=== PATIENT | female | born 1990 | race African-American/Black ===

== ENCOUNTER 2019-05-10 21:16 | Emergency (ER) | payer OTHER ==
[2019-05-10] MEDS ORDERED: METOCLOPRAMIDE 10 MG/2 ML VIAL IVP STA (21:40)
[2019-05-10] MEDS ORDERED: SODIUM CHLORIDE 0.9% 1,000 ML IV ONE (21:41)
--- NOTE | 2019-05-10 21:44 | ED Physician Documentation ---
History of Present Illness - Stated complaint Stated Complaint: COUGHING/CHILLS/8WKS PREG - Chief complaint Chief Complaint: Heent - History obtained from History obtained from: Patient - History of Present Illness Timing: Today - Additonal information Additional information: 29 YEAR OLD FEMALE AT 8 GESTATIONAL WEEKS BASED ON LMP PRESENTS TO THE EMERGENCY DPERATMENT WITH 1 DAY OF COUGH, CONGESTION, FEVER, MYALGIA. PATIENT REPORTS OF UPPER ABDOMINAL PAIN WITH COUGHING. NO VAGINAL BLEEDING, PELVIC PAIN, DIARRHEA OR CONSTIPATION. PATIENT'S 3 CHILDREN HAVE A RUNNY NOSE RECENTLY. PATIENT DENIES OTHER SICK CONTACTS OR RECENT TRAVELS. PATIENT VOMITED ONCE WELL. Review of Systems Constitutional: reports: Fever, Chills Eyes: denies: Photophobia, Discharge Ears: denies: Ear pain, Drainage/discharge Nose: reports: Rhinorrhea / runny nose, Congestion Throat: reports: Sore throat. denies: Dental pain / toothache Respiratory: reports: Cough. denies: Dyspnea, Hemoptysis, Wheezing GI: reports: Nausea, Vomiting. 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 - Present Medications Home Medications: Ambulatory Orders Medication Instructions Recorded Confirmed Metoclopramide [Reglan] 10 mg PO Q6H PRN #20 tablet 05/10/19 Oseltamivir Phosphate [Tamiflu] 75 mg PO BID 5 Days #10 capsule 05/10/19 - Allergies Allergies/Adverse Reactions: Allergies Allergy/AdvReac Type Severity Reaction Status Date / Time No Known Drug Allergies Allergy Verified 05/10/19 21:39 - Social History Does the pt smoke?: No Smoking Status: Never smoker Does the pt drink ETOH?: No Does the pt have substance abuse?: No - Immunizations Immunizations are current?: No Results - Vitals Vitals: Oxygen O2 Source Room air - Labs Labs: Laboratory Tests 05/10/19 05/10/19 05/10/19 21:44 21:54 21:57 WBC 6.5 RBC 4.51 Hgb 12.5 Hct 38.4 MCV 85.1 MCH 27.7 MCHC 32.6 RDW 13.1 Plt Count 282 MPV 10.8 Neut # (Auto) 5.3 Lymph # (Auto) 0.5 L [place] # (Auto) 0.7 Eos # (Auto) 0.0 Baso # (Auto) 0.0 Absolute Nucleated RBC 0.00 Nucleated RBC % 0.0 Sodium 132 L Potassium 3.9 Chloride 100 L Carbon Dioxide 20 L Anion Gap 12.0 BUN 7 Creatinine 0.6 Estimated GFR (MDRD) 144 Glucose 100 Calcium 9.4 Total Bilirubin 0.5 AST 19 ALT 14 Alkaline Phosphatase 49 Total Protein 8.0 Albumin 4.1 Globulin 3.9 Albumin/Globulin Ratio 1.1 Lipase 33 Influenza A (Rapid) POSITIVE H Influenza B (Rapid) Negative PD MEDICAL DECISION MAKING - ED course Complexity details: re-evaluated patient, d/w patient, d/w family ED course: 29 YEAR OLD FEMALE PRESENTS TO THE EMERGENCY DEPARTMENT BECAUSE OF FEVER, SORE THROAT, MYALGIA AND A COUGH THAT STARTED TODAY. SHE WAS TESTED POSITIVE FOR INFLUENZA A. SHE WAS GIVEN IV FLUID. SHE HAD NO VOMITING HERE IN THE EMERGENCY DEPARTMENT. SHE WAS GIVEN TYLENOL FOR FEVER. ON RECHECK, SHE WAS FEELING MUCH BETTER. SHE REMAINED SLIGHTLY TACHYCARDIAC BUT STABLE. SHE AMBULATED TO THE ATHROOM WITHOUT FEELING DIZZY, SHORTNESS OF BREATH OR SYNCOPE OR NEAR SYNCOPE. I REOCMMENDED CLOSE OUTPATIENT FOLLOW UP. STRICT RETURN INSTRUCTIONS WERE GIVEN. PATIENT WAS DISCHARGED IN STABLE CONDITION. Departure - Departure Disposition: 01 Home, Self Care Clinical Impression: Influenza A, Vomiting Condition: Stable Instructions: ED Flu, ED Nausea Vomiting Follow-Up: [facility] [Provider Group] - Within 3 Days Prescriptions: Metoclopramide [Reglan] 10 mg PO Q6H PRN #20 tablet PRN Reason: Nausea / Vomiting Oseltamivir Phosphate [Tamiflu] 75 mg PO BID 5 Days #10 capsule Comments: PLEASE DRINK PLENTY OF FLUID. PLEASE USE TYLENOL NEEDED FOR FEVER CONTROL. PLEASE FOLLOW UP WITH YOUR DOCTOR IN 3-5 DAYS. RETURN TO THE EMERGENCY DEPARTMENT IF YOU DEVELOP ABDOMINAL PAIN, VAGINAL BLEEDING OR ANY NEW OR CONCERNING SYMPTOMS. Discharge Date/Time: 05/10/19 23:38
[2019-05-10] MEDS ORDERED: ACETAMINOPHEN 500 MG TABLET PO STA (21:57)
[2019-05-10] MEDS ORDERED: OSELTAMIVIR 75 MG CAPSULE PO STA (22:23)
[2019-05-10 22:30] LABS: ALBUMIN 4.1 g/dL (3.2-5.5); ALBUMIN/GLOBULIN RATIO 1.1 (1.0-2.2); BILIRUBIN,TOTAL 0.5 mg/dL (0.2-1.0); CALCIUM 9.4 mg/dL (8.5-10.3); CREATININE 0.6 mg/dL (0.4-1.0)
[2019-05-10 22:48] LABS: BASOPHILS % (AUTO) 0.2 %; EOSINOPHILS % (AUTO) 0.2 %; HGB - HEMOGLOBIN 12.5 g/dL (12.0-16.0); LYMPHOCYTES # (AUTO) 0.5 10^3/uL (1.5-3.5); LYMPHOCYTES % (AUTO) 7.6 %; MEAN CORPUSCULAR HEMOGLOBIN 27.7 pg (27.0-31.0); MEAN CORPUSCULAR HGB CONC 32.6 g/dL (32.0-36.0); MEAN CORPUSCULAR VOLUME 85.1 fL (81.0-99.0); MEAN PLATELET VOLUME 10.8 fL (7.9-10.8); MONOCYTES # (AUTO) 0.7 10^3/uL (0.0-1.0); MONOCYTES % (AUTO) 10.4 %; NEUTROPHILS # (AUTO) 5.3 10^3/uL (1.5-6.6); NEUTROPHILS % (AUTO) 81.1 %; PLT - PLATELET COUNT 282 10^3/uL (130-450); RED BLOOD COUNT 4.51 10^6/uL (4.20-5.40); RED CELL DISTRIBUTION WIDTH 13.1 % (12.0-15.0); WHITE BLOOD COUNT 6.5 x10^3/uL (4.8-10.8)
[2019-05-10] MEDS ORDERED: METOCLOPRAMIDE 10 MG TABLET PO PRN (22:59)
[2019-05-10 23:35] VITALS: BP 128/87
== END 2019-05-10 23:38 | disposition home or self-care (01) ==
LOC: ED 21:16
DX: J10.1 Influenza due to other identified influenza virus with other respiratory manifestations (principal)
CPT/HCPCS: 36415; 80053; 83690; 85025; 87275; 87276; 96361; 96374; 99283; 99284; A9270; J2765

== ENCOUNTER 2019-11-01 19:59 | Outpatient (CLI) | payer OTHER ==
--- NOTE | 2019-11-01 21:44 | Ultrasound Report ---
PROCEDURE: OB F/U or Repeat INDICATIONS: GEST DIABETES, IUGR, SUPERVISION HIGH RISK PREGNAN OUTSIDE/PRIOR DATING DATA: First dating scan (date and location): 10/24/2019. Estimated date of delivery (DAVID) from first dating scan: 12/15/2019. TECHNIQUE: Real-time scanning was performed of the fetus, with image documentation and biometric measurements. Endovaginal scanning: Not performed COMPARISON: None. FINDINGS: General: A single living intrauterine gestation is present. Presentation: Vertex Placenta: Placental position is anterior, without previa. Amniotic fluid index: 17.2 cm, 68% for gestational age. heart rate: 132 beats per minute. Maternal cervical canal: 4.2 cm long; normal length is 2.5 cm or more. biometrics: Biparietal diameter: 7.8 cm, 31 weeks, 2 days Head circumference: 29.8 cm, 32 weeks, 6 days Abdominal circumference: 29.4 cm, 33 weeks 3 days Femur length: 6.2 cm, 32 weeks, 2 days Estimated gestational age from initial scan: 33 weeks, 5 days Composite gestational age from present scan: 32 weeks, 3 days Estimated weight and percentile: 2059 g, 19.1 percentile Measurement variability in biometric dating: +/- 10 days from 12-20 weeks gestation, +/- 2 weeks from 20-30 weeks gestation, +/- 3 weeks at 30 weeks gestation or more. Other: Not applicable. IMPRESSION: 1. Single live uterine gestation with a gestational age of 33 weeks, 5 days which is concordant with dates by previous scan. 2. VIRGILIO within normal limits. 3. 19th percentile for overall growth. Reviewed by: Shena Reynoso MD on 11/01/2019 9:43 PM PDT Approved by: Shena Reynoso MD on 11/01/2019 9:43 PM PDT Station ID: [id number]
== END 2019-11-01 20:00 | disposition home or self-care (01) ==
LOC: DI 19:59
PROVIDERS: ATTEND Obstetrics & Gynecology
DX: O24.419 Gestational diabetes mellitus in pregnancy, unspecified control (principal); O36.5930 Maternal care for other known or suspected poor fetal growth, third trimester, not applicable or unspecified; O09.93 Supervision of high risk pregnancy, unspecified, third trimester; Z3A.33 33 weeks gestation of pregnancy
CPT/HCPCS: 76816

== ENCOUNTER 2019-11-02 16:18 | Outpatient (CLI) | payer OTHER ==
[2019-11-02 16:45] VITALS: BP 92/51
--- NOTE | 2019-11-07 13:56 | PROCEDURE REPORT ---
- HPI Diagnosis/Indication for NST: Gestational Diabetes Current EDU 12/15/19 Gestation 33 Weeks and 6 Days 4 Para 3 Vital Signs Temperature 36.7 C 11/02/19 16:35 Heart Rate 100 11/02/19 16:35 Respiratory Rate 16 11/02/19 16:35 Blood Pressure 79/59 L 11/02/19 16:35 O2 Saturation 100 11/02/19 16:35 Temperature 36.7 C 11/02/19 16:35 Heart Rate 100 11/02/19 16:35 Respiratory Rate 16 11/02/19 16:35 Blood Pressure 92/51 L 11/02/19 16:45 O2 Saturation 100 11/02/19 16:35 - NST Procedure NST Procedure Start Date 11/02/19 Start Time 16:26 Stop Time 17:00 Vibroacoustic Stimulation Used No Patient States Movement Yes - Results and Plan Findings/Impression: reactive NST Plan: continue Antinatal NST's
== END 2019-11-02 17:05 | disposition home or self-care (01) ==
LOC: WFO 16:18 → FBP 16:22 → WFO 17:05
PROVIDERS: ATTEND Obstetrics & Gynecology
DX: O24.419 Gestational diabetes mellitus in pregnancy, unspecified control (principal); Z3A.33 33 weeks gestation of pregnancy
CPT/HCPCS: 59025

== ENCOUNTER 2019-11-05 18:58 | Outpatient (CLI) | payer OTHER ==
[2019-11-05 19:22] VITALS: BP 95/54
--- NOTE | 2019-11-24 20:22 | PROCEDURE REPORT ---
- HPI Vital Signs Temperature 98.2 F 11/05/19 19:15 Heart Rate 96 11/05/19 19:15 Respiratory Rate 17 11/05/19 19:15 Blood Pressure 95/54 L 11/05/19 19:15 O2 Saturation 98 11/05/19 19:15 Temperature 98.2 F 11/05/19 19:15 Heart Rate 96 11/05/19 19:15 Respiratory Rate 17 11/05/19 19:15 Blood Pressure 95/54 L 11/05/19 19:15 O2 Saturation 98 11/05/19 19:15 - NST Procedure NST Procedure Start Date 11/05/19 Start Time 19:00 Stop Time 17:00 Vibroacoustic Stimulation Used No EFM 125 mod william 15x15 accels no decels TOCO: quiet - Results and Plan Findings/Impression: Cat I tracing Cont with twice weekly NST and weekly VIRGILIO
== END 2019-11-05 19:46 | disposition home or self-care (01) ==
LOC: WFO 18:58 → FBP 19:01 → WFO 19:46
PROVIDERS: ATTEND Obstetrics & Gynecology
DX: O24.419 Gestational diabetes mellitus in pregnancy, unspecified control (principal)
CPT/HCPCS: 59025

== ENCOUNTER 2019-11-07 16:06 | Outpatient (CLI) | payer OTHER ==
[2019-11-07 16:19] VITALS: BP 126/77
--- NOTE | 2019-11-16 11:50 | PROCEDURE REPORT ---
- HPI Diagnosis/Indication for NST: Gestational Diabetes Current EDU 12/15/19 Gestation 34 Weeks and 4 Days 4 Para 3 Vital Signs Temperature 37.1 C 11/07/19 16:19 Heart Rate 100 11/07/19 16:19 Respiratory Rate 18 11/07/19 16:19 Blood Pressure 126/77 11/07/19 16:19 O2 Saturation 100 11/07/19 16:19 Temperature 37.1 C 11/07/19 16:19 Heart Rate 100 11/07/19 16:19 Respiratory Rate 18 11/07/19 16:19 Blood Pressure 126/77 11/07/19 16:19 O2 Saturation 100 11/07/19 16:19 - NST Procedure NST Procedure Start Date 11/07/19 Start Time 16:15 Stop Time 16:35 Vibroacoustic Stimulation Used No Patient States Movement Yes - Results and Plan Findings/Impression: 34 WEEKS GDM REACTIVE NST Plan: CONTINUE ANTINATAL TESTING
--- NOTE | 2019-11-16 11:53 | PROCEDURE REPORT ---
- HPI Diagnosis/Indication for NST: Gestational Diabetes Current EDU 12/15/19 Gestation 34 Weeks and 4 Days 4 Para 3 Vital Signs Temperature 37.1 C 11/07/19 16:19 Heart Rate 100 11/07/19 16:19 Respiratory Rate 18 11/07/19 16:19 Blood Pressure 126/77 11/07/19 16:19 O2 Saturation 100 11/07/19 16:19 Temperature 37.1 C 11/07/19 16:19 Heart Rate 100 11/07/19 16:19 Respiratory Rate 18 11/07/19 16:19 Blood Pressure 126/77 11/07/19 16:19 O2 Saturation 100 11/07/19 16:19 - NST Procedure NST Procedure Start Date 11/07/19 Start Time 16:15 Stop Time 16:35 Vibroacoustic Stimulation Used No Patient States Movement Yes - Results and Plan Findings/Impression: REACTIVE NST Plan: CONTINUE ANTINATAL TESTING
== END 2019-11-07 16:39 | disposition home or self-care (01) ==
LOC: WFO 16:06 → FBP 16:08 → WFO 16:39
PROVIDERS: ATTEND Obstetrics & Gynecology
DX: O24.419 Gestational diabetes mellitus in pregnancy, unspecified control (principal); Z3A.34 34 weeks gestation of pregnancy
CPT/HCPCS: 59025

== ENCOUNTER 2019-11-10 15:38 | Outpatient (CLI) | payer OTHER ==
[2019-11-10 16:30] VITALS: BP 118/71
--- NOTE | 2019-11-10 23:13 | PROCEDURE REPORT ---
- HPI Diagnosis/Indication for NST: Gestational Diabetes Current EDU 12/15/19 Gestation 35 Weeks and 0 Days 4 Para 3 Vital Signs Temperature 99.0 F 11/10/19 16:00 Heart Rate 98 11/10/19 16:00 Respiratory Rate 16 11/10/19 16:00 Blood Pressure 118/71 11/10/19 16:00 O2 Saturation 100 11/10/19 16:00 Temperature 99.0 F 11/10/19 16:00 Heart Rate 98 11/10/19 16:00 Respiratory Rate 16 11/10/19 16:00 Blood Pressure 118/71 11/10/19 16:00 O2 Saturation 100 11/10/19 16:00 - NST Procedure NST Procedure Start Date 11/10/19 Start Time 15:53 Stop Time 16:26 Vibroacoustic Stimulation Used No Patient States Movement Yes - Results and Plan Findings/Impression: Category 1 NST Alafaya neg Continue current surveillance
== END 2019-11-10 16:25 | disposition home or self-care (01) ==
LOC: WFO 15:38 → FBP 15:43 → WFO 16:25
PROVIDERS: ATTEND Obstetrics & Gynecology
DX: O24.419 Gestational diabetes mellitus in pregnancy, unspecified control (principal); Z3A.35 35 weeks gestation of pregnancy; O99.213 Obesity complicating pregnancy, third trimester; E66.9 Obesity, unspecified; O09.93 Supervision of high risk pregnancy, unspecified, third trimester
CPT/HCPCS: 59025; 76815

== ENCOUNTER 2019-11-17 07:00 | Outpatient (CLI) | payer OTHER ==
[2019-11-17 20:37] LABS: TRICHOMONAS VAGINALIS DNA NEGATIVE (NEGATIVE)
== END 2019-11-17 23:59 | disposition home or self-care (01) ==
LOC: LAB.R 07:00
PROVIDERS: ATTEND Obstetrics & Gynecology
DX: Z36.85 Encounter for antenatal screening for Streptococcus B (principal); Z11.3 Encounter for screening for infections with a predominantly sexual mode of transmission
CPT/HCPCS: 87491; 87591; 87661; 87797

== ENCOUNTER 2019-11-24 12:16 | Outpatient (CLI) | payer OTHER ==
[2019-11-24 12:30] VITALS: BP 125/72
--- NOTE | 2019-11-24 20:19 | PROCEDURE REPORT ---
- HPI Diagnosis/Indication for NST: Gestational Diabetes Current EDU 12/15/19 Gestation 37 Weeks and 0 Days 4 Para 3 Vital Signs Temperature 99.0 F 11/24/19 12:29 Heart Rate 97 11/24/19 12:29 Respiratory Rate 18 11/24/19 12:29 Blood Pressure 125/72 11/24/19 12:29 Temperature 99.0 F 11/24/19 12:29 Heart Rate 97 11/24/19 12:29 Respiratory Rate 18 11/24/19 12:29 Blood Pressure 125/72 11/24/19 12:29 O2 Saturation - NST Procedure NST Procedure Start Date 11/24/19 Start Time 12:26 Stop Time 12:55 Vibroacoustic Stimulation Used No Patient States Movement Yes EFM 135 mod william 15x15 accels no decels TOCO: quiet - Results and Plan Findings/Impression: Cat I tracing Cont with twice weekly NST and weekly VIRGILIO
== END 2019-11-24 12:55 | disposition home or self-care (01) ==
LOC: DI 12:16 → FBP 12:19 → DI 12:55
PROVIDERS: ATTEND Obstetrics & Gynecology
DX: O24.419 Gestational diabetes mellitus in pregnancy, unspecified control (principal); Z3A.37 37 weeks gestation of pregnancy
CPT/HCPCS: 59025

== ENCOUNTER 2019-11-28 15:38 | Outpatient (CLI) | payer OTHER ==
[2019-11-28 15:53] VITALS: BP 121/77
--- NOTE | 2019-11-28 19:01 | PROCEDURE REPORT ---
- HPI Diagnosis/Indication for NST: Gestational Diabetes Current EDU 12/15/19 Gestation 37 Weeks and 4 Days 4 Para 3 Vital Signs Temperature 98.6 F 11/28/19 15:51 Heart Rate 102 H 11/28/19 15:51 Respiratory Rate 18 11/28/19 15:51 Blood Pressure 121/77 11/28/19 15:51 O2 Saturation 100 11/28/19 15:51 Temperature 98.6 F 11/28/19 15:51 Heart Rate 102 H 11/28/19 15:51 Respiratory Rate 18 11/28/19 15:51 Blood Pressure 121/77 11/28/19 15:51 O2 Saturation 100 11/28/19 15:51 - NST Procedure NST Procedure Start Date 11/28/19 Start Time 15:50 Stop Time 14:17 Vibroacoustic Stimulation Used No Patient States Movement Yes EFM 135 mod william 15x15 accels no decels TOCO: irritable - Results and Plan Findings/Impression: Cat I tracing Continue with twice weekly NST and weekly VIRGILIO CS at 39 wga
== END 2019-11-28 16:29 | disposition home or self-care (01) ==
LOC: WFO 15:38 → FBP 15:40 → WFO 16:29
PROVIDERS: ATTEND Obstetrics & Gynecology
DX: O24.419 Gestational diabetes mellitus in pregnancy, unspecified control (principal); Z3A.37 37 weeks gestation of pregnancy
CPT/HCPCS: 59025

== ENCOUNTER 2019-12-01 12:11 | Outpatient (CLI) | payer OTHER ==
[2019-12-01 13:21] VITALS: BP 135/72
--- NOTE | 2019-12-01 16:56 | Ultrasound Report ---
PROCEDURE: OB Limited INDICATIONS: VIRGILIO OUTSIDE/PRIOR DATING DATA: Last menstrual period (LMP): Not available. LMP-based estimated date of delivery (DAVID): Not available. First dating scan (date and location): [facility], 10/24/2019 Estimated date of delivery (DAVID) from first dating scan: 12/15/2019. TECHNIQUE: Real-time scanning was performed of the fetus, with image documentation. Endovaginal scanning: Not needed. COMPARISON: 11/10/2019, 11/01/2019 OB ultrasound studies. FINDINGS: A single living intrauterine gestation is present. Presentation: Vertex Placenta: Placental position is anterior, without previa. Amniotic fluid index: 13.2 cm, 50th percentile for gestational age. heart rate: 144 beats per minutes. Maternal cervical canal: Closed, without funneling Estimated gestational age from initial scan: 38 weeks 0 days. Biophysical profile yields 8 of 8 possible points. IMPRESSION: Biophysical profile yields 8 of 8 possible points. Normal amniotic fluid volume, vertex presentation, anterior placenta. The delivery date is projected to be centered on 12/15/2019. Reviewed by: Theo Moulton MD on 12/01/2019 4:54 PM PDT Approved by: Theo Moulton MD on 12/01/2019 4:54 PM PDT Station ID: [id number]
== END 2019-12-01 13:05 | disposition home or self-care (01) ==
LOC: DI 12:11 → FBP 12:32 → DI 13:05
PROVIDERS: ATTEND Obstetrics & Gynecology
DX: O24.419 Gestational diabetes mellitus in pregnancy, unspecified control (principal); O09.93 Supervision of high risk pregnancy, unspecified, third trimester; O99.213 Obesity complicating pregnancy, third trimester; O36.5930 Maternal care for other known or suspected poor fetal growth, third trimester, not applicable or unspecified; Z3A.38 38 weeks gestation of pregnancy
CPT/HCPCS: 59025; 76815

== ENCOUNTER 2019-12-02 18:00 | Outpatient (CLI) | payer OTHER ==
[2019-12-02 18:36] LABS: BASOPHILS % (AUTO) 0.2 %; EOSINOPHILS % (AUTO) 0.5 %; HGB - HEMOGLOBIN 10.9 g/dL (12.0-16.0); LYMPHOCYTES # (AUTO) 1.8 10^3/uL (1.5-3.5); LYMPHOCYTES % (AUTO) 22.4 %; MEAN CORPUSCULAR HEMOGLOBIN 27.3 pg (27.0-31.0); MEAN CORPUSCULAR HGB CONC 32.6 g/dL (32.0-36.0); MEAN CORPUSCULAR VOLUME 83.7 fL (81.0-99.0); MEAN PLATELET VOLUME 11.1 fL (7.9-10.8); MONOCYTES # (AUTO) 0.8 10^3/uL (0.0-1.0); MONOCYTES % (AUTO) 9.8 %; NEUTROPHILS # (AUTO) 5.4 10^3/uL (1.5-6.6); NEUTROPHILS % (AUTO) 65.9 %; PLT - PLATELET COUNT 238 10^3/uL (130-450); RED BLOOD COUNT 3.99 10^6/uL (4.20-5.40); RED CELL DISTRIBUTION WIDTH 15.5 % (12.0-15.0); WHITE BLOOD COUNT 8.2 x10^3/uL (4.8-10.8)
[2019-12-02 19:21] LABS: % IRON SATURATION 9 % (20-50); ALBUMIN 3.4 g/dL (3.2-5.5); ALBUMIN/GLOBULIN RATIO 0.9 (1.0-2.2); ALKALINE PHOSPHATASE 108 IU/L (42-121); ALT ALANINE AMINOTRANSFERASE 13 IU/L (10-60); AST ASPARTATE AMINOTRANSFERASE 15 IU/L (10-42); BILIRUBIN,TOTAL 0.4 mg/dL (0.2-1.0); BUN - BLOOD UREA NITROGEN < 5 mg/dL (6-20); CALCIUM 9.3 mg/dL (8.5-10.3); CARBON DIOXIDE - CO2 21 mmol/L (21-32); CHLORIDE 106 mmol/L (101-111); CREATININE 0.4 mg/dL (0.4-1.0); GLUCOSE 138 mg/dL (70-100); IRON 59 ug/dL (28-170); SODIUM 136 mmol/L (135-145); TOTAL IRON BINDING CAPACITY 650 ug/dL (250-450); TRANSFERRIN 464 mg/dL (192-382)
[2019-12-02 19:57] LABS: FERRITIN 15.1 ng/mL (11.0-306.8)
[2019-12-02 21:19] LABS: HEMOGLOBIN A1c% 5.5 % (4.27-6.07)
== END 2019-12-02 18:01 | disposition home or self-care (01) ==
LOC: LAB 18:00
PROVIDERS: ATTEND Obstetrics & Gynecology
DX: O90.81 Anemia of the puerperium (principal)
CPT/HCPCS: 36415; 80053; 81599; 82306; 82728; 83021; 83036; 83540; 84443; 84466; 85014; 85018; 85025; 85041; 85660